=== PATIENT | female | born 1940 | race Caucasian/White ===

== ENCOUNTER 2017-04-04 16:34 | Observation (INO) ==
--- NOTE | 2017-04-04 18:29 | Emergency Department Note ---
Disposition Clinical Impression: Atrial fibrillation with rapid ventricular response Disposition: Still a Patient Referrals: Cory Lopez MD [Primary Care Provider] - Forms: ED Satisfaction Letter Arrhythmia/Palpitations HPI - General Chief Complaint: ED Arrhythmia/Palpitations Stated Complaint: "a-fib" Time Seen by Provider: 04/04/17 18:08 Source: patient Limitations: no limitations Nursing Notes Reviewed: Yes Vital Signs Reviewed: Yes - History of Present Illness HPI Narrative: 76-year-old with a history of A. fib had been on amiodarone had come off due to side effects placed on Rythmol and today noticed an elevated heart rate. 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 Denies: chest pain, shortness of breath - Related Data Home Medications Medication Instructions Recorded Confirmed Aspirin 81 mg PO DAILY 12/07/16 12/07/16 Calcium Carbonate/Vitamin D3 2 tab PO DAILY 12/07/16 12/07/16 [Calcium 600 + Vit D Tablet] Fenofibric Acid (Choline) 135 mg PO DAILY 12/07/16 12/07/16 [Trilipix] Levothyroxine [Synthroid] 75 mcg PO DAILY 12/07/16 12/07/16 Simvastatin [Zocor] 40 mg PO HS 12/07/16 12/07/16 Previous Rx's Medication Instructions Recorded Dabigatran [Pradaxa] 75 mg PO BID #60 capsule 12/11/16 Metoprolol [Lopressor] 12.5 mg PO BID #60 tablet 12/11/16 Propafenone [Rhythmol] 150 mg PO Q8H #90 tablet 12/11/16 Allergies Allergy/AdvReac Type Severity Reaction Status Date / Time codeine AdvReac Nausea Verified 04/04/17 16:45 All systems ED: reviewed and negative except as stated. Constitutional: Denies: fever, chills, weakness, weight change Eyes: Denies: eye pain, eye discharge, vision change ENT ED: Denies: ear pain, throat pain, dental pain, hearing loss, epistaxis, congestion, dysphagia Cardiovascular: Reports: palpitations. Denies: chest pain, dyspnea on exertion , edema, syncope Respiratory: Denies: cough, dyspnea, wheezes, hemoptysis, stridor Gastrointestinal: Denies: abdominal pain, nausea, vomiting, diarrhea, constipation, hematemesis, melena, hematochezia Genitourinary: Denies: dysuria, frequency, hematuria, discharge Musculoskeletal: Denies: back pain, neck pain, arthralgia, myalgia Integumentary: Denies: rash, abrasion, lesions Neurological: Denies: headache, weakness, numbness, paresthesias, confusion, abnormal gait, vertigo Psychiatric: Denies: anxiety, depression, suicidal thoughts, homicidal thoughts , auditory hallucinations, visual hallucinations Endocrine: Denies: fatigue Hematological/Lymphatic: Denies: easy bleeding, easy bruising Allergic/Immunologic: Denies: facial swelling, urticaria Past Medical History - Past Medical History Medical history: Reports: atrial fibrillation, COPD, CVA, hyperlipidemia, renal disease, thyroid disease, syncope, other Surgical history: Reports: orthopedic, other (trigger finger release) Psychiatric history: Reports: no psych history - Social History Smoking Status: Never smoker Smokeless Tobacco Status: No Alcohol use: Reports: occasionally Drug use: Reports: none Physical Exam - General Limitations: no limitations General appearance: alert, in no apparent distress - Head Head exam: atraumatic, normocephalic, normal inspection - Eye Eye exam: Present: normal appearance, PERRL, EOMI - ENT ENT exam: normal exam, normal oropharynx, mucous membranes moist - Neck Neck exam: Present: normal inspection, full ROM, trachea midline - Chest Chest inspection: Present: normal inspection, symmetric chest wall rise - Respiratory Respiratory exam: Present: normal lung sounds bilaterally - Cardiovascular Cardiovascular exam: Present: tachycardia, irregular rhythm - Abdominal Exam Abdominal exam: Present: soft, Non-Tender. Absent: tenderness, distention, guarding, rebound, rigidity - Extremities Exam Extremities exam: Present: normal inspection, full ROM. Absent: tenderness, pedal edema - Expanded Lower Extremity Exam Neurovascular/Tendon exam: Absent: motor deficit, sensory deficit, tendon deficit Gait: observed and normal - Back Exam Back exam: Present: normal inspection, full ROM. Absent: tenderness - Neurological Exam Neurological exam: Present: alert, oriented X3 - Psychiatric Psychiatric exam: Present: normal affect, normal mood - Skin Skin exam: Present: warm, dry, intact, normal color Course Vital Signs Temperature 98.1 F 04/04/17 16:40 Pulse Rate 127 04/04/17 16:40 Respiratory Rate 18 04/04/17 16:40 Blood Pressure 121/75 04/04/17 16:40 O2 Sat by Pulse Oximetry 95 04/04/17 16:40 Temperature 98.1 F 04/04/17 16:40 Pulse Rate 123 04/04/17 18:12 Respiratory Rate 16 04/04/17 18:12 Blood Pressure 141/112 04/04/17 18:12 O2 Sat by Pulse Oximetry 97 04/04/17 18:12 Oxygen Delivery Oxygen Delivery Room Air S.[place]. - S.B.A.R. Recommendation: Recommendation based on pending studies, treatments, or consults S.B.A.R. Report Given to: Dr Anabel TurnerBSandyABrittany Repor Time: 19:00
[2017-04-04 18:46] LABS: Basophils # 0.1 K/mcL (0.0-0.2); Basophils % 0.8 %; Eosinophils # 0.5 K/mcL (0.0-0.6); Eosinophils % 6.5 %; Hematocrit 42.6 % (35.3-44.9); Hemoglobin 13.9 g/dL (11.5-15.4); Immature Granulocytes % 0.1 % (0-4); Lymphocytes # 2.3 K/mcL (0.6-4.6); Lymphocytes % 28.9 %; Mean Corpuscular HGB Conc 32.6 g/dL (31.6-35.5); Mean Corpuscular Hemoglobin 30.1 pg (28.0-33.3); Mean Corpuscular Volume 92.2 fL (83.0-100.0); Mean Platelet Volume 9.4 fL (9.4-12.4); Monocytes # 0.8 K/mcL (0.0-1.3); Monocytes % 10.7 %; Neutrophils # 4.2 K/mcL (1.6-8.9); Platelet Count 545 K/mcL (140-400); Red Blood Count 4.62 M/mcL (3.82-4.97); Red Cell Distribution Width 12.4 % (11.5-14.5)
[2017-04-04 18:52] LABS: INR 1.5; Prothrombin Time 16.1 Seconds (9.4-12.1)
[2017-04-04 18:55] LABS: Activated Partial Thrombo Time 65.4 Seconds (26.0-36.0)
[2017-04-04 18:59] LABS: Calcium 9.9 mg/dL (8.6-10.8); Potassium 3.8 mEq/L (3.5-4.5)
[2017-04-04 19:17] LABS: Thyroid Stimulating Hormone 3.72 mcIU/mL (0.350-4.840)
[2017-04-04] MEDS ORDERED: Aspirin 81 MG TAB.CHEW PO ONE (19:30)
[2017-04-04 20:42] LABS: Magnesium 2.1 mg/dL (1.6-2.6)
[2017-04-05] MEDS ORDERED: 0.9 % Sodium Chloride 1,000 ML ONE (03:30)
--- NOTE | 2017-04-05 05:51 | Emergency Department Note ---
Disposition Clinical Impression: Atrial fibrillation with rapid ventricular response Disposition: Admitted As Inpatient Condition: Fair Arrhythmia/Palpitations HPI - General Chief Complaint: ED Arrhythmia/Palpitations Stated Complaint: "a-fib" Time Seen by Provider: 04/04/17 18:08 Source: patient Limitations: no limitations - History of Present Illness Pt Subjective Complaint: rapid heart beat, "heart racing" Context: occurred during rest Associated symptoms: Reports: near-syncope. Denies: chest pain, shortness of breath - Related Data Home Medications Medication Instructions Recorded Confirmed Calcium Carbonate/Vitamin D3 2 tab PO DAILY 12/07/16 04/04/17 [Calcium 600 + Vit D Tablet] Fenofibric Acid (Choline) 135 mg PO DAILY 12/07/16 04/04/17 [Trilipix] Levothyroxine [Synthroid] 75 mcg PO DAILY 12/07/16 04/04/17 Simvastatin [Zocor] 40 mg PO HS 12/07/16 04/04/17 Aspirin Enteric Coated [Aspirin EC] 81 mg PO DAILY 04/04/17 04/04/17 Previous Rx's Medication Instructions Recorded Dabigatran [Pradaxa] 75 mg PO BID #60 capsule 12/11/16 Metoprolol [Lopressor] 12.5 mg PO BID #60 tablet 12/11/16 Propafenone [Rhythmol] 150 mg PO Q8H #90 tablet 12/11/16 Allergies Allergy/AdvReac Type Severity Reaction Status Date / Time codeine AdvReac Nausea Verified 04/04/17 16:45 Constitutional: Denies: fever, chills, weakness, weight change Eyes: Denies: eye pain, eye discharge, vision change ENT ED: Denies: ear pain, throat pain, dental pain, hearing loss, epistaxis, congestion, dysphagia Cardiovascular: Reports: palpitations. Denies: chest pain, dyspnea on exertion , edema, syncope Respiratory: Denies: cough, dyspnea, wheezes, hemoptysis, stridor Gastrointestinal: Denies: abdominal pain, nausea, vomiting, diarrhea, constipation, hematemesis, melena, hematochezia Genitourinary: Denies: dysuria, frequency, hematuria, discharge Musculoskeletal: Denies: back pain, neck pain, arthralgia, myalgia Integumentary: Denies: rash, abrasion, lesions Neurological: Denies: headache, weakness, numbness, paresthesias, confusion, abnormal gait, vertigo Psychiatric: Denies: anxiety, depression, suicidal thoughts, homicidal thoughts , auditory hallucinations, visual hallucinations Endocrine: Denies: fatigue Hematological/Lymphatic: Denies: easy bleeding, easy bruising Allergic/Immunologic: Denies: facial swelling, urticaria Past Medical History - Past Medical History Medical history: Reports: atrial fibrillation, COPD, CVA, hyperlipidemia, renal disease, thyroid disease, syncope, other Surgical history: Reports: orthopedic, other Psychiatric history: Reports: no psych history - Social History Smoking Status: Never smoker Smokeless Tobacco Status: No Alcohol use: Reports: occasionally Drug use: Reports: none Physical Exam - General Limitations: no limitations General appearance: alert, in no apparent distress Course Vital Signs Temperature 98.1 F 04/04/17 16:40 Pulse Rate 127 04/04/17 16:40 Respiratory Rate 18 04/04/17 16:40 Blood Pressure 121/75 04/04/17 16:40 O2 Sat by Pulse Oximetry 95 04/04/17 16:40 Temperature 97.8 F 04/05/17 01:32 Pulse Rate 66 04/05/17 01:32 Respiratory Rate 16 04/05/17 01:32 Blood Pressure 99/66 04/05/17 01:32 O2 Sat by Pulse Oximetry 93 04/05/17 01:32 Oxygen Delivery Oxygen Delivery Room Air Arrhythmia/Palpitations - [facility] Narrative Medical decision making narrative: I, Pete Little, examined this patient and my medical decision-making was reviewed with the RUBBER WASHER/PA/Advanced Practice Nurse/Resident Physician. I agree with the documented findings, disposition and treatment plan as described except to the extent set forth below. Patient received in sign out at start of my shift pending laboratory evaluation , disposition. Troponin positive at 0.25, given aspirin in the ED. Started on diltiazem drip and given diltiazem bolus of 10 mg in the ED. No chest pain or shortness of breath or ED. Patient admitted for further care and evaluation. Patient vital signs stable prior to departure. - Medical Records Medical records reviewed: Yes I reviewed the patient's medical records. - Lab Data Lab results reviewed: Yes I reviewed the patient's lab results. Result diagrams: 04/04/17 18:37 04/04/17 18:37 Lab Results 04/04/17 04/04/17 04/04/17 Range/Units 18:37 18:37 18:37 WBC 7.8 (4.3-11.1) K/mcL RBC 4.62 (3.82-4.97) M/mcL Hgb 13.9 (11.5-15.4) g/dL Hct 42.6 (35.3-44.9) % MCV 92.2 (83.0-100.0) fL MCH 30.1 (28.0-33.3) pg MCHC 32.6 (31.6-35.5) g/dL RDW 12.4 (11.5-14.5) % Plt Count 545 H (140-400) K/mcL MPV 9.4 (9.4-12.4) fL Immature Gran % 0.1 (0-4) % Seg Neutrophils % 53.0 % Lymphocytes % 28.9 % Monocytes % 10.7 % Eosinophils % 6.5 % Basophils % 0.8 % Neutrophils # 4.2 (1.6-8.9) K/mcL Lymphocytes # 2.3 (0.6-4.6) K/mcL Monocytes # 0.8 (0.0-1.3) K/mcL Eosinophils # 0.5 (0.0-0.6) K/mcL Basophils # 0.1 (0.0-0.2) K/mcL PT 16.1 H (9.4-12.1) Seconds INR 1.5 APTT 65.4 H (26.0-36.0) Seconds Sodium 142 (136-145) mEq/L Potassium 3.8 (3.5-4.5) mEq/L Chloride 108 (98-109) mEq/L Carbon Dioxide 27 (19-29) mEq/L BUN 19 (7-20) mg/dL Creatinine 1.11 (0.57-1.11) mg/dL Est GFR ( Amer) 58 L (> 60) Est GFR (Non-Af Amer) 48 L (> 60) BUN/Creatinine Ratio 17 (6-26) Glucose 104 H (70-99) mg/dL Calculated Osmolality 297 (280-300) Calcium 9.9 (8.6-10.8) mg/dL Magnesium 2.1 (1.6-2.6) mg/dL Troponin I (0-0.03) ng/mL TSH 3.720 (0.350-4.840) mcIU/mL 04/04/17 Range/Units 18:37 WBC (4.3-11.1) K/mcL RBC (3.82-4.97) M/mcL Hgb (11.5-15.4) g/dL Hct (35.3-44.9) % MCV (83.0-100.0) fL MCH (28.0-33.3) pg MCHC (31.6-35.5) g/dL RDW (11.5-14.5) % Plt Count (140-400) K/mcL MPV (9.4-12.4) fL Immature Gran % (0-4) % Seg Neutrophils % % Lymphocytes % % Monocytes % % Eosinophils % % Basophils % % Neutrophils # (1.6-8.9) K/mcL Lymphocytes # (0.6-4.6) K/mcL Monocytes # (0.0-1.3) K/mcL Eosinophils # (0.0-0.6) K/mcL Basophils # (0.0-0.2) K/mcL PT (9.4-12.1) Seconds INR APTT (26.0-36.0) Seconds Sodium (136-145) mEq/L Potassium (3.5-4.5) mEq/L Chloride (98-109) mEq/L Carbon Dioxide (19-29) mEq/L BUN (7-20) mg/dL Creatinine (0.57-1.11) mg/dL Est GFR ( Amer) (> 60) Est GFR (Non-Af Amer) (> 60) BUN/Creatinine Ratio (6-26) Glucose (70-99) mg/dL Calculated Osmolality (280-300) Calcium (8.6-10.8) mg/dL Magnesium (1.6-2.6) mg/dL Troponin I 0.25 H* (0-0.03) ng/mL TSH (0.350-4.840) mcIU/mL
[2017-04-05] MEDS ORDERED: Acetaminophen 325 MG TABLET PO PRN (07:30)
[2017-04-05] MEDS ORDERED: Naloxone 0.4 MG/ML INJ IVP PRN (07:30)
--- NOTE | 2017-04-05 08:35 | Internal Med History&Physical ---
Date of Encounter: 04/05/17 Time of Encounter: 08:32 Assessment and Plan (1) Atrial fibrillation with rapid ventricular response Current visit: Yes Status: Acute Afib with rvr in despite of treatment with beta blockers and Rythmol. No evidence of systolic dysfunction in last echo (EF 55%), started on cardizem drip overnight, cardiology eval for further recommendations. Magnesium and TSH wnl. Resume pradaxa. (2) DVT prophylaxis Current visit: No Status: Acute On pradaxa. (3) Elevated troponin Current visit: No Status: Acute Likely related to A fib, no chest pain. (4) Hypothyroidism Current visit: No Status: Acute Continue with levothyroxine. Qualifiers: Hypothyroidism type: unspecified Qualified Code(s): E03.9 - Hypothyroidism , unspecified Internal Medicine - H&P: HPI Chief complaint: palpitations Admitted From: Emergency Dept Plans for Post Hospital Care: Home History of present illness: Ms. Faria is a very pleasant 76 year old female with past medical history of atrial fibrillation, the patient was receiving treatment with amiodarone for almost 5 years until she developed some abnormalities in her pulmonary function tests and the amiodarone was stopped. Due to lung toxicity she was started on Rythmol in November of this year. For anticoagulation she has been taking pradaxa consistently. The patient had an admission due to syncope earlier this year, etiology of the syncope was likely related to A. fib. She presented this time to our emergency department due to persistent palpitations and evidence of rapid ventricular response. She also has some mild troponin elevation, however she denies chest pain. Patient denies cough, shortness of breath, syncope, skin rash, abnormal movements, diarrhea, dysuria. Initial blood work was essentially unremarkable, however she had some elevation of troponin upon admission. Chest x-ray was within normal limits. Due to persistent tachycardia she was started On Cardizem Drip. The Patient Was Admitted for Further Management and Workup. Past Med Surg Social Fam HX - Past Medical History Medical history: atrial fibrillation, COPD, CVA, hyperlipidemia, renal disease, thyroid disease, syncope, other Psychiatric history: no psych history - Past Surgical History Surgical History: orthopedic, other - Social History Smoking Status: Never smoker Smokeless Tobacco Status: No Alcohol use: occasionally Drug use: none - Family History Mother Living Status: Age at : 91 Hx Family Cardiac Disorders: No Father Living Status: Age at : 53 Hx Family Cardiac Disorders: Yes Hx Family Cancer: Yes Hx Family GI Disorders: Yes Internal Medicine - H&P: Meds Calcium Carbonate/Vitamin D3 [Calcium 600 + Vit D Tablet] 2 tab PO DAILY [History] Fenofibric Acid (Choline) [Trilipix] 135 mg PO DAILY 12/07/16 [History] Levothyroxine [Synthroid] 75 mcg PO DAILY 12/07/16 [History] Simvastatin [Zocor] 40 mg PO HS 12/07/16 [History] Dabigatran [Pradaxa] 75 mg PO BID #60 capsule 12/11/16 [Rx] Metoprolol [Lopressor] 12.5 mg PO BID #60 tablet 12/11/16 [Rx] Propafenone [Rhythmol] 150 mg PO Q8H #90 tablet 12/11/16 [Rx] Aspirin Enteric Coated [Aspirin EC] 81 mg PO DAILY 04/04/17 [History] Allergies codeine Adverse Reaction (Verified 04/04/17 16:45) Nausea All Systems PM: A 10-system review of systems was performed and is negative for pertinent findings except as documented above in the HPI. - Constitutional Constitutional: as per HPI, no chills, no fever(s), no night sweats - EENT Eyes: as per HPI, no change in vision, no discharge, no pain, no photophobia Ears: as per HPI, no ear discharge, no ear pain, no tinnitus Nose, mouth and throat: as per HPI, no dysphagia, no nasal discharge, no neck pain, no sore throat - Breasts Breasts: as per HPI - Cardiovascular Cardiovascular ROS IM: irregular heart rhythm, no chest pain, no diaphoresis, no dyspnea, no lightheadedness, no palpitations, no syncope - Respiratory Respiratory: as per HPI, no cough, no dyspnea, no wheezing, no excessive phlegm production - Gastrointestinal Gastrointestinal: as per HPI, no abdominal pain, no diarrhea, no hematemesis, no hematochezia, no melena, no nausea, no vomiting - Genitourinary Genitourinary: as per HPI, no change in urinary stream, no dysuria, no flank pain, no hematuria Menstruation: as per HPI - Musculoskeletal Musculoskeletal ROS IM: as per HPI, no numbness, no tingling - Integumentary Integumentary IM: as per HPI, no rash, no unusual bruising - Neurological Neurological ROS: as per HPI, no confusion, no convulsions, no focal weakness, no numbness, no tingling, no tremor(s) - Psychiatric Psychiatric: as per HPI - Endocrine Endocrine IM: as per HPI - Hematologic/Lymphatic Hematologic/Lymphatic: as per HPI, no easy bruising - Allergic/Immunologic Allergic/Immunologic: as per HPI - Constitutional Vitals: Temp Pulse Resp BP Pulse Ox 97.6 F 71 14 104/67 96 04/05/17 06:47 04/05/17 06:47 04/05/17 06:47 04/05/17 06:47 04/05/17 06:47 General appearance: Present: A&O X 3, pleasant, no acute distress - Head Head exam: Present: atraumatic, normocephalic - Eye Eye exam: Present: PERRL, conjuntiva pink, sclera anicteric Pupils: Present: PERRL - Neck Neck exam general surgery: Present: supple, trachea midline. Absent: lymphadenopathy - Respiratory Respiratory exam: Present: CTAB. Absent: accessory muscle use, rales, rhonchi, wheezes - Cardiovascular Cardiovascular exam: Present: RRR, +S1, +S2. Absent: diastolic murmur, gallop, rubs, systolic murmur - GI/Abdominal GI/Abdominal exam: Present: normal bowel sounds, soft, no peritoneal signs. Absent: distended, tenderness - Extremities Exam Extremities exam: Present: warm, radial pulses palpable and symetrical. Absent : calf tenderness, cyanotic, pedal edema - Neurological Exam Neurological exam: Present: CN II-XII intact, oriented X3, no focal deficits. Absent: pronater drift, facial droop, speech deficit - Skin Skin exam: Present: dry, intact Internal Med - H&P Results - Labs CBC & Chem 7: 04/04/17 18:37 04/04/17 18:37
--- NOTE | 2017-04-05 11:07 | Cardiology Consult Note ---
Date of Encounter: 04/05/17 Time of Encounter: 10:59 Assessment and Plan (1) Paroxysmal atrial fibrillation Current Visit: No Status: Acute H/o PAF. Presented with atrial flutter with RVR. EKG HR 125 bpm, atrial flutter, QT/QTc 300/374, QRS 88. Now NSR HR [address] Pete Reed. Increase rythmol to 225 mg q 8 hr. Scr is normal. TSH normal. TTE 09/2016 showed preserved LV function, mild AR. Stress test November 2016 was negative. Pt voiced concern about TID dosing. Will send RX for rythmol SR to see if insurance would cover. Continue pradaxa for anticoagulation. Denies any signs of bleeding. (2) Elevated troponin Current Visit: No Status: Acute Mild troponin elevation, 0.25,0.26. Demand ischemia in the setting of atrial fibrillation with RVR. C/o upper chest discomfort that correlates with palpitations and HR 120-140bpm. Stress test 11/2016 negative. TTE 10/12 showed preserved EF. EKG with no concerning ST changes. Discussion w patient/family: The assessment and plan as outlined above was discussed with the patient and/or family members who expressed understanding and agreement. All questions were answered. Thank you for involving us in the care of your patient. Please call with any questions. History of Present Illness Consult date: 04/05/17 Requesting physician: Fernie Young Consult reason: Afib with RVR Chief complaint: Palpitations, chest discomfort History of present illness: Ms. Faria is a 76 year old female with a history of PAF on rythmol and pradaxa. She c/o increasing palpitations and HR running 120-140's at home. Symptoms started last week while they were visiting [facility]. Last Monday she developed palpitations all day and her husbands cell phone skip showed her heart rates were 120-140. The next day she felt better. She c/o fatigue and weakness in her bilateral arms. She contacted the cardiology office on Monday. She was recommended to go to the ER for evaluation. Cardizem IV bolus given and cardizem gtt started. She is currently NSR. She was started on rythmol in November 2016. Stress test completed at that time was negative for ischemia. TTE 09/2016 showed preserved EF and mild aortic regurgitation. She denies missing any medications. Cardiology consulted for further recommendation. Past Med Surg Social Fam HX - Past Medical History Attestation: Yes The following information was validated with the patient. Medical history: atrial fibrillation, COPD, CVA, hyperlipidemia, renal disease, thyroid disease, syncope, other Psychiatric history: no psych history - Past Surgical History Surgical History: orthopedic, other - Social History Smoking Status: Never smoker Smokeless Tobacco Status: No Alcohol use: occasionally Drug use: none - Family History Mother Living Status: Age at : 91 Hx Family Cardiac Disorders: No Father Living Status: Age at : 53 Hx Family Cardiac Disorders: Yes Hx Family Cancer: Yes Hx Family GI Disorders: Yes Medications and Allergies Calcium Carbonate/Vitamin D3 [Calcium 600 + Vit D Tablet] 2 tab PO DAILY [History] Fenofibric Acid (Choline) [Trilipix] 135 mg PO DAILY 12/07/16 [History] Levothyroxine [Synthroid] 75 mcg PO DAILY 12/07/16 [History] Simvastatin [Zocor] 40 mg PO HS 12/07/16 [History] Dabigatran [Pradaxa] 75 mg PO BID #60 capsule 12/11/16 [Rx] Metoprolol [Lopressor] 12.5 mg PO BID #60 tablet 12/11/16 [Rx] Propafenone [Rhythmol] 150 mg PO Q8H #90 tablet 12/11/16 [Rx] Aspirin Enteric Coated [Aspirin EC] 81 mg PO DAILY 04/04/17 [History] Allergies codeine Adverse Reaction (Verified 04/04/17 16:45) Nausea All Systems Review: A 10-system review of systems was performed and is negative for pertinent findings except as documented above in the HPI. Physical Examination Vital Signs Temp Pulse Resp BP Pulse Ox 04/05/17 10:58 98.1 F 72 14 135/65 96 04/05/17 06:47 97.6 F 71 14 104/67 96 04/05/17 01:32 97.8 F 66 16 99/66 93 04/04/17 21:46 97.6 F 58 16 121/63 96 04/04/17 21:06 16 117/80 04/04/17 20:51 133 20 121/98 98 04/04/17 20:00 133 20 126/101 96 04/04/17 19:05 129 16 121/111 96 04/04/17 18:12 123 16 141/112 97 04/04/17 16:40 98.1 F 127 18 121/75 95 Intake and Output 04/04/17 04/05/17 04/05/17 23:59 07:59 15:59 Intake Total 25 / 25 50 / 50 120 / 120 Output Total 350 / 350 Balance 25 / 25 -300 / -300 120 / 120 Intake: IV Fluids 25 / 25 50 / 50 Cardizem 125 MG In 25 / 25 50 / 50 Dextrose 5% 100 ML @ 10 MG/HR 10 mls/hr IVC . [id number] LEONILA Rx#: [id number] Oral 120 / 120 Output: Urine 350 / 350 Other: Meal Breakfast Percent of Meal Consumed 100% # Voids 1 Weight 63.503 kg Blood Glucose* 150 General: Conversant, No Apparent Distress HEENT: Atraumatic, Normocephaly, Mucus Membranes Moist Neck: No JVD, Normal carotid pulses Cardiac: Reg Rate and Rhythm, Normal S1 and S2, No Murmur Lungs: Normal Breath Sounds, No Wheeze, Rales, Rhonchi Neuro: Alert and responsive, No focal deficits noted Abdomen: Soft, Non-Tender Skin: No rashes noted on visualized skin Musculoskeletal: No Chest Wall Tenderness Extremities: No Clubbing, No Cyanosis, No Edema, Normal Pulses Results 04/04/17 18:37 04/04/17 18:37 Lab Results 04/05/17 07:53 Troponin I 0.24 H* - Imaging and Cardiology Stress Test: report reviewed Echo: report reviewed - EKG Interpretation EKG results cardiology: personally reviewed (HR 125 bpm, atrial flutter, QT/QTc 300/374, QRS 88.) Consult Discharge Plan - Plan Referrals: Cory Lopez MD [Primary Care Provider] -
[2017-04-05] MEDS: *HR* Dabigatran 75 MG CAPSULE PO SCH ×2 (11:20→20:34)
[2017-04-05] MEDS: Aspirin Enteric Coated 81 MG Tablet PO SCH (11:20)
[2017-04-05] MEDS: Fenofibrate 54 MG TABLET PO SCH (11:20)
--- NOTE | 2017-04-05 15:18 | Electrocardiograph Report ---
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
[2017-04-06 05:44] LABS: Basophils # 0.1 K/mcL (0.0-0.2); Basophils % 0.9 %; Eosinophils # 0.6 K/mcL (0.0-0.6); Eosinophils % 10.4 %; Hematocrit 35.6 % (35.3-44.9); INR 1.5; Lymphocytes # 1.6 K/mcL (0.6-4.6); Lymphocytes % 29.2 %; Mean Corpuscular HGB Conc 32.3 g/dL (31.6-35.5); Mean Corpuscular Hemoglobin 30.1 pg (28.0-33.3); Mean Corpuscular Volume 93.2 fL (83.0-100.0); Mean Platelet Volume 9.5 fL (9.4-12.4); Monocytes # 0.8 K/mcL (0.0-1.3); Monocytes % 14.2 %; Neutrophils # 2.5 K/mcL (1.6-8.9); Platelet Count 429 K/mcL (140-400); Prothrombin Time 16.2 Seconds (9.4-12.1); Red Blood Count 3.82 M/mcL (3.82-4.97); Red Cell Distribution Width 12.5 % (11.5-14.5); Segmented Neutrophils % 45.3 %
[2017-04-06 05:48] LABS: Hemoglobin 11.5 g/dL (11.5-15.4)
[2017-04-06 05:59] LABS: Calcium 8.5 mg/dL (8.6-10.8); Magnesium 2.2 mg/dL (1.6-2.6); Potassium 4.1 mEq/L (3.5-4.5)
[2017-04-06 07:53] VITALS: BP 138/85
[2017-04-06] MEDS: Fenofibrate 54 MG TABLET PO SCH (09:07)
[2017-04-06] MEDS: Aspirin Enteric Coated 81 MG Tablet PO SCH (09:08)
[2017-04-06] MEDS: *HR* Dabigatran 75 MG CAPSULE PO SCH (09:08)
--- NOTE | 2017-04-06 10:05 | Cardiology Progress Note ---
Date of Encounter: 04/06/17 Time of Encounter: 10:03 Assessment and Plan (1) Paroxysmal atrial fibrillation Current Visit: No Status: Acute H/o PAF. Presented with atrial flutter with RVR. EKG HR 125 bpm, atrial flutter, QT/QTc 300/374, QRS 88. Now NSR HR 75 bpm. Increase rythmol to 225 mg q 8 hr. S/p three doses of rythmol at increased dose. EKG this morning shows HR 71 bpm, NSR, QT/QTc 429/452. Scr is normal. TSH normal. TTE 09/2016 showed preserved LV function, mild AR. Stress test November 2016 was negative. Pt voiced concern about TID dosing. Parr check completed for rythmol SR twice a day dosing. Cost is 78$. RX sent to [facility] in [place]. The extended release dose will not be available until tomorrow afternoon. She will need to continue taking rythmol 225 mg Q8 HR for the next two days. RX for 5 pills placed on chart. Extended release RX sent to her pharmacy and is being ordered. 90 Day RX on chart. Cardiology will sign off. Please call with questions. F/u in 2 weeks will be made with [facility]. Plan of care discussed with Dr. Reed. (2) Elevated troponin Current Visit: No Status: Acute Mild troponin elevation, 0.25,0.26. Demand ischemia in the setting of atrial fibrillation with RVR. Stress test 11/2016 negative. TTE 10/12 showed preserved EF. EKG with no concerning ST changes. Baseline ST changes noted. She denies chest pain. No further testing at this time. Discussion w patient/family: The assessment and plan as outlined above was discussed with the patient and/or family members who expressed understanding and agreement. All questions were answered. Thank you for involving us in the care of your patient. Please call with any questions. Subjective Principal diagnosis: afib with RVR Interval history: No new complaints. Denies palpitations or chest pain. Objective Vital Signs, Last 4 Hours Temp Pulse Resp BP Pulse Ox 04/06/17 07:52 98 F 73 16 138/85 96 General: Conversant, No Apparent Distress HEENT: Atraumatic, Normocephaly, Mucus Membranes Moist Neck: No JVD, Normal carotid pulses Cardiac: Reg Rate and Rhythm, Normal S1 and S2, No Murmur Lungs: Normal Breath Sounds, No Wheeze, Rales, Rhonchi Neuro: Alert and responsive, No focal deficits noted Abdomen: Soft, Non-Tender Skin: No rashes noted on visualized skin Musculoskeletal: No Chest Wall Tenderness Extremities: No Clubbing, No Cyanosis, No Edema, Normal Pulses Results 04/06/17 05:14 04/06/17 05:14 Lab Results 04/05/17 04/06/17 04/06/17 13:41 05:14 05:14 WBC 5.6 Hgb 11.5 D Hct 35.6 Plt Count 429 H INR 1.5 Sodium Potassium Chloride Carbon Dioxide BUN Creatinine Glucose Calcium Magnesium Troponin I 0.17 H* 04/06/17 05:14 WBC Hgb Hct Plt Count INR Sodium 143 Potassium 4.1 Chloride 112 H Carbon Dioxide 24 BUN 21 H Creatinine 1.15 H Glucose 99 Calcium 8.5 L Magnesium 2.2 Troponin I - EKG Interpretation EKG results cardiology: personally reviewed, other (24 hour telemetry review shows NSR. AVg HR 72 bpm.) Consult Discharge Plan - Plan Referrals: Cory Lopez MD [Primary Care Provider] - 04/10/17 1:00 pm () Prescriptions: Propafenone [Rhythmol] 225 mg PO Q8HR #5 tablet
--- NOTE | 2017-04-06 11:58 | Discharge Summary ---
Date of Encounter: 04/06/17 Time of Encounter: 11:55 - Discharge Diagnosis (1) Atrial fibrillation with rapid ventricular response Priority: Primary Status: Acute (2) DVT prophylaxis Priority: Secondary Status: Acute (3) Elevated troponin Priority: Secondary Status: Acute (4) Hypothyroidism Priority: Secondary Status: Acute Qualifiers: Hypothyroidism type: unspecified Qualified Code(s): E03.9 - Hypothyroidism , unspecified - Discharge Medications Prescriptions: Propafenone [Rhythmol] 225 mg PO Q8HR #5 tablet Propafenone HCl [Rythmol Sr] 325 mg PO BID #180 cap.er.12h Home Medications: Calcium Carbonate/Vitamin D3 [Calcium 600 + Vit D Tablet] 2 tab PO DAILY [History] Fenofibric Acid (Choline) [Trilipix] 135 mg PO DAILY 12/07/16 [History] Levothyroxine [Synthroid] 75 mcg PO DAILY 12/07/16 [History] Simvastatin [Zocor] 40 mg PO HS 12/07/16 [History] Dabigatran [Pradaxa] 75 mg PO BID #60 capsule 12/11/16 [Rx] Metoprolol [Lopressor] 12.5 mg PO BID #60 tablet 12/11/16 [Rx] Propafenone [Rhythmol] 150 mg PO Q8H #90 tablet 12/11/16 [Rx] Aspirin Enteric Coated [Aspirin EC] 81 mg PO DAILY 04/04/17 [History] Propafenone HCl [Rythmol Sr] 325 mg PO BID #180 cap.er.12h 04/06/17 [Rx] Propafenone [Rhythmol] 225 mg PO Q8HR #5 tablet 04/06/17 [Rx] Allergies/Adverse Reactions: Allergies codeine Adverse Reaction (Verified 04/04/17 16:45) Nausea Procedures/tests Complete & Pending: Procedures Performed prior 72 hours Category Date Time Status EKG [ECG 12 lead ECG] [ECG] Timed Y 04/05/17 10:50 Completed Date of admission: 04/04/17 20:53 Primary care physician: Cory Lopez MD Consults: 04/05/17 07:29 Consult to Cardiology [CONS] Routine Comment: Consulting Provider: Cardiology Rosa Reason for Consult: a fib rvr Call Completed: No Discharging clinician: Fernie R Young Anticipated date of discharge: 04/06/17 - Patient Status Disposition: Home, Self-Care Condition: Fair Functional capacity at discharge: independent ambulation Overall status at discharge: patient is back to baseline - Discharge Instructions Follow Up With: Cory Lopez MD [Primary Care Provider] - 04/10/17 1:00 pm () - Diet and Activity Activity: increase activity as tolerated Diet: advance to your usual diet Interval History: Ms. Faria is a very pleasant 76 year old female with past medical history of atrial fibrillation, the patient was receiving treatment with amiodarone for almost 5 years until she developed some abnormalities in her pulmonary function tests and the amiodarone was stopped. Due to lung toxicity she was started on Rythmol in November of this year. For anticoagulation she has been taking pradaxa consistently. The patient had an admission due to syncope earlier this year, etiology of the syncope was likely related to A. fib. She presented this time to our emergency department due to persistent palpitations and evidence of rapid ventricular response. She also has some mild troponin elevation, however she denies chest pain. Patient denies cough, shortness of breath, syncope, skin rash, abnormal movements, diarrhea, dysuria. Initial blood work was essentially unremarkable, however she had some elevation of troponin upon admission. Chest x-ray was within normal limits. Due to persistent tachycardia she was started On Cardizem Drip. The Patient Was Admitted for Further Management and Workup. Hospital course: Ms. Faria is a 76 year old female H/o PAF. Presented with atrial flutter with RVR. initially on cardizem drip. EKG HR 125 bpm, atrial flutter, QT/QTc 300/374, QRS 88. Now NSR HR 75 bpm. Increase rythmol to 225 mg q 8 hr. S/p three doses of rythmol at increased dose. EKG this morning shows HR 71 bpm, NSR, QT/QTc 429/452. Scr is normal. TSH normal. TTE 09/2016 showed preserved LV function, mild AR. Stress test November 2016 was negative. Continue with AC. patient has prescriptions and meds at home. Patient stable for discharge tiday, d/w cardiology. D/W patient. - Time Spent with Patient Total time spent providing and/or coordinating discharge services: - Constitutional Vitals: Temp Pulse Resp BP Pulse Ox 98 F 73 16 138/85 96 04/06/17 07:52 04/06/17 07:52 04/06/17 07:52 04/06/17 07:52 04/06/17 07:52 General appearance: Present: A&O X 3, pleasant, no acute distress - Head Head exam: Present: atraumatic, normocephalic - Eye Eye exam: Present: PERRL, conjuntiva pink, sclera anicteric Pupils: Present: PERRL - Neck Neck exam general surgery: Present: supple, trachea midline. Absent: lymphadenopathy - Respiratory Respiratory exam: Present: CTAB. Absent: accessory muscle use, rales, rhonchi, wheezes - Cardiovascular Cardiovascular exam: Present: RRR, +S1, +S2. Absent: diastolic murmur, gallop, rubs, systolic murmur - GI/Abdominal GI/Abdominal exam: Present: normal bowel sounds, soft, no peritoneal signs. Absent: distended, tenderness - Extremities Exam Extremities exam: Present: warm, radial pulses palpable and symetrical. Absent : calf tenderness, cyanotic, pedal edema - Neurological Exam Neurological exam: Present: CN II-XII intact, oriented X3, no focal deficits. Absent: pronater drift, facial droop, speech deficit - Skin Skin exam: Present: dry, intact
--- NOTE | 2017-04-06 15:37 | Electrocardiograph Report ---
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
== END 2017-04-06 12:59 | disposition home or self-care (01) ==
LOC: 2ANU 16:34 → EMEROO 16:34 → 2ANU 21:18
PROVIDERS: ADMIT Internal Medicine; ATTEND Internal Medicine

== ENCOUNTER 2021-04-13 20:20 | Observation (INO) ==
[2021-04-13] MEDS ORDERED: 0.9 % Sodium Chloride 1,000 ML IVC ONE (20:47)
[2021-04-13] MEDS ORDERED: DilTIAZem 50 MG/50 ML IV.SOLN IVC SCH (20:50)
[2021-04-13 21:13] LABS: Basophils # 0.1 K/mcL (0.0-0.2); Basophils % 0.6 %; Eosinophils # 0.2 K/mcL (0.0-0.6); Eosinophils % 1.8 %; Hematocrit 40.6 % (35.3-44.9); Hemoglobin 13.1 g/dL (11.5-15.4); Immature Granulocytes % 0.2 % (0-4); Lymphocytes # 1.7 K/mcL (0.6-4.6); Mean Corpuscular HGB Conc 32.3 g/dL (31.6-35.5); Mean Corpuscular Hemoglobin 30.3 pg (28.0-33.3); Mean Corpuscular Volume 93.8 fL (83.0-100.0); Mean Platelet Volume 10.4 fL (9.4-12.4); Monocytes % 8.2 %; Platelet Count 368 K/mcL (140-400); Red Blood Count 4.33 M/mcL (3.82-4.97); Red Cell Distribution Width 12.6 % (11.5-14.5); Segmented Neutrophils % 75.2 %
[2021-04-13 21:24] LABS: BUN/Creatinine Ratio 21 (6-26); Blood Urea Nitrogen 18 mg/dL (8-23); Calcium 9.5 mg/dL (8.6-10.3); Carbon Dioxide 21 mEq/L (23-29); Chloride 103 mEq/L (98-107); Creatine Kinase 57 Units/L (30-223); Glucose 167 mg/dL (70-105); Magnesium 1.9 mg/dL (1.6-2.6); Osmolality,Calculated 290 (280-300); Potassium 3.6 mEq/L (3.5-5.1); Sodium 137 mEq/L (136-145); Troponin I < 0.03 ng/mL (< 0.04); eGFR For African Americans > 60 (> 60); eGFR For Non-African Americans > 60 (> 60)
[2021-04-13] MEDS ORDERED: Acetaminophen 325 MG TABLET PO PRN (23:46)
[2021-04-13] MEDS ORDERED: Naloxone 0.4 MG/ML INJ IVP PRN (23:46)
[2021-04-13] MEDS ORDERED: Ondansetron 4 MG/2 ML VIAL IVP PRN (23:46)
[2021-04-13] MEDS ORDERED: Perflutren Lipid Microsphere 1.3 ML in 0.9 % Sodium Chloride 8.7 ML IVP PRN (23:49)
[2021-04-14 06:03] LABS: Basophils # 0.1 K/mcL (0.0-0.2); Basophils % 0.7 %; Eosinophils # 0.1 K/mcL (0.0-0.6); Hematocrit 37.5 % (35.3-44.9); Immature Granulocytes % 0.1 % (0-4); Lymphocytes # 2.1 K/mcL (0.6-4.6); Lymphocytes % 30.8 %; Mean Corpuscular Hemoglobin 29.9 pg (28.0-33.3); Mean Corpuscular Volume 93.5 fL (83.0-100.0); Monocytes # 0.8 K/mcL (0.0-1.3); Neutrophils # 3.7 K/mcL (1.6-8.9); Platelet Count 339 K/mcL (140-400); Red Blood Count 4.01 M/mcL (3.82-4.97); Red Cell Distribution Width 12.7 % (11.5-14.5); Segmented Neutrophils % 55.4 %; White Blood Count 6.7 K/mcL (4.3-11.1)
[2021-04-14 06:05] LABS: Estimated Average Glucose 123 mg/dl; Hemoglobin A1C 5.9 %
[2021-04-14 06:19] LABS: INR 1.5; Prothrombin Time 17.2 Seconds (9.4-12.1)
[2021-04-14 06:28] LABS: BUN/Creatinine Ratio 20 (6-26); Blood Urea Nitrogen 15 mg/dL (8-23); Calcium 9.1 mg/dL (8.6-10.3); Carbon Dioxide 26 mEq/L (23-29); Chloride 108 mEq/L (98-107); Chol/HDL Ratio 2.8 (0-4.9); Cholesterol 139 mg/dL (< 200); Glucose 95 mg/dL (70-105); HDL Cholesterol 50 mg/dL (40-59); LDL Cholesterol,Calculated 63 mg/dL (< 100); Magnesium 1.9 mg/dL (1.6-2.6); Osmolality,Calculated 293 (280-300); Potassium 3.6 mEq/L (3.5-5.1); Sodium 141 mEq/L (136-145); Triglycerides 131 mg/dL (< 150); eGFR For African Americans > 60 (> 60); eGFR For Non-African Americans > 60 (> 60)
[2021-04-14] MEDS ORDERED: Apixaban 5 MG TABLET PO SCH (09:00)
[2021-04-14] MEDS ORDERED: DilTIAZem CD (24hr) 120 MG CAP.ER.24H PO SCH (09:00)
[2021-04-14 09:26] LABS: Thyroid Stimulating Hormone 2.871 mcIU/mL (0.340-5.600)
[2021-04-14 11:16] VITALS: BP 125/76
[2021-04-14] MEDS ORDERED: Latanoprost 2.5 ML BOTTLE BOTH EYES SCH (21:00)
== END 2021-04-14 16:09 | disposition home or self-care (01) ==
LOC: 2ANU 20:20 → EMEROOARM 20:20 → 2ANU 23:40
PROVIDERS: ADMIT Student in an Organized Health Care Education/Training Program; ATTEND Student in an Organized Health Care Education/Training Program